=== PATIENT | male | born 2000 | race Asian ===

== ENCOUNTER 2024-06-25 01:06 | Emergency (ER) | payer OTHER ==
[2024-06-25] MEDS ORDERED: Lorazepam 2 MG/ML VIAL ONE (02:51)
[2024-06-25 03:04] LABS: #Basophils 0.04 10x3/uL (0.0-0.2); %Basophils 0.4 % (0.0-1.0); %Eosinophils 0.3 % (0.0-10.0); %Lymphocytes 23.6 % (21.0-51.0); %Monocytes 6.2 % (0.0-10.0); %Neutrophils 69.2 % (42.0-75.0); Actual Bicarbonate (HCO3v) 21.9 mEq/L (22-28); Calcium, Ionized (venous) 1.05 mmol/L (1.16-1.32); Chloride (VBG) 107 mmol/L (98-106); Hematocrit 41.3 % (42.0-52.0); Hematocrit-VBG 43 % (42.0-52.0); Hemoglobin 13.5 g/dL (14.0-18.0); Hemoglobin (Hb) 14.5 g/dL (13.2-17.3); Mean Corpuscular HGB CONC 32.7 g/dL (32.0-36.0); Mean Corpuscular Hemoglobin 26.1 pg (27.0-31.0); Mean Corpuscular Volume 79.7 fL (78.0-98.0); Mean Platelet Volume 8.7 fL (7.4-10.4); Platelet Count 322 10x3/uL (130-400); Potassium (VBG) 3.57 mmol/L (3.70-5.30); RBC Distribution Width 12.9 % (11.5-14.5); Red Blood Cell (RBC) Count 5.18 mill/uL (4.70-6.10); Sodium 142 mmol/L (133-146); pH (venous) 7.368 (7.32-7.43)
[2024-06-25 03:21] LABS: ALT (SGPT) 48 U/L (8-55); AST (SGOT) 33 U/L (5-34); Acetaminophen Less than 10 mcg/mL (Less than 10); Albumin 3.6 g/dL (3.5-5.0); Alkaline Phosphatase 64 U/L (40-110); Anion Gap 13 mmol/L (10-20); BUN (Urea Nitrogen) 12 mg/dL (8.9-20.6); Bilirubin, Total 0.3 mg/dL (0.2-1.2); Calc. Creatinine Clearance 0 mL/min (70-130); Calcium 7.8 mg/dL (7.8-10.44); Carbon Dioxide 20 mmol/L (22-29); Chloride 112 mmol/L (98-107); Estimated GFR 99; Globulin 2.4 g/dL (2.4-3.5); Glucose 138 mg/dL (70-105); Potassium 3.5 mmol/L (3.5-5.1); Salicylate Less than 8.0 mg/dL (Less than 8.0); Sodium 141 mmol/L (136-145)
== END 2024-06-25 10:15 | disposition home or self-care (01) ==
LOC: ERS 01:06
DX: F10.129 Alcohol abuse with intoxication, unspecified (principal); Y90.8 Blood alcohol level of 240 mg/100 ml or more; Z55.0 Illiteracy and low-level literacy
CPT/HCPCS: 36415; 70450; 80053; 80307; 82805; 85025; 96372; J2060